=== PATIENT | male | born 1975 | race Two or more races ===

== ENCOUNTER 2019-02-22 20:45 | Inpatient (IN) | payer MEDICAID ==
[~2019-02-22] VITALS: Ht 182.9 cm; Wt 158.9 kg
[2019-02-23 13:01] VITALS: BP 128/85
== END 2019-02-23 17:16 | disposition home or self-care (01) | DRG 189 ==
LOC: ED 21:50 → EDIP 02-23 00:18 → 4NOR 02-23 01:20 → DCLOUNGE 02-23 16:52 → 4WST 02-23 17:08 → DCLOUNGE 02-23 17:11
PROVIDERS: ADMIT Internal Medicine; ATTEND Internal Medicine
DX: J96.21 Acute and chronic respiratory failure with hypoxia (principal); Z68.42 Body mass index [BMI] 45.0-49.9, adult; E66.01 Morbid (severe) obesity due to excess calories; G47.33 Obstructive sleep apnea (adult) (pediatric); G89.29 Other chronic pain; I10 Essential (primary) hypertension; Z99.81 Dependence on supplemental oxygen; Z91.19 Patient's noncompliance with other medical treatment and regimen; Z86.73 Personal history of transient ischemic attack (TIA), and cerebral infarction without residual deficits; Z90.49 Acquired absence of other specified parts of digestive tract; M54.9 Dorsalgia, unspecified
CPT/HCPCS: 36415; 36600; 71275; 80053; 82607; 82803; 83605; 83880; 84484; 85025; 93005; Q9967

== ENCOUNTER 2019-11-04 10:24 | Emergency (ER) | payer MEDICAID ==
[~2019-11-04] VITALS: Ht 185.4 cm; Wt 145.7 kg
[~2019-11-04 10:24] MED LIST: NO HOME MEDS
[2019-11-04] MEDS ORDERED: ONDANSETRON 2MG/ML, 2ML IVPush ONE (11:00)
--- NOTE | 2019-11-04 11:00 | NUR ---
LATE ENTRY FOR 1100: PT PRESENTS TO ED WITH C/O LEFT LOWER ABD PAIN RADIATING TO LEFT FLANK, WELL HEMATURIA X 3 DAYS. PT HAS HX KIDNEY STONES. PT IS A&O, RESPS EVEN AND UNLABORED, PT SPEAKING IN FULL SENTENCES WITHOUT DIFFICULTY. PT PLACED ON BP AND SPO2 MONITORS. PT SEEN BY SANDRO MEDINA, PT INFORMED OF POC.
--- NOTE | 2019-11-04 11:07 | NUR ---
piv attempted x 2, unsuccessful. task RN juan at bedside to attempt US PIV placement.
[2019-11-04] MEDS: MORPHINE SULFATE 4 MG/ML, 1ML IVPush PRN ×2 (11:28→12:23)
[2019-11-04 11:30] LABS: BASOPHILS # (AUTO) 0.06 x10^3/uL (0-0.1); BASOPHILS % (AUTO) 1 % (0-1); EOSINOPHILS # (AUTO) 0.07 x10^3/uL (0-0.4); EOSINOPHILS % (AUTO) 1 % (1-7); LYMPHOCYTES % (AUTO) 20 % (22-44); MD NO; MEAN CORPUSCULAR HEMOGLOBIN 32.6 pg (27.5-34.5); MEAN CORPUSCULAR HGB CONC 33.7 g/dL (33.2-36.2); MEAN CORPUSCULAR VOLUME 96.5 fL (81-97); MEAN PLATELET VOLUME 9.3 fL (7.4-10.4); MONOCYTES # (AUTO) 0.46 x10^3/uL (0.2-0.8); MONOCYTES % (AUTO) 8 % (2-9); NEUTROPHILS # (AUTO) 4.15 x10^3/uL (1.8-6.8); NEUTROPHILS % (AUTO) 70 % (42-75); PLATELET COUNT 170 x10^3/uL (130-400); RED BLOOD COUNT 5.19 x10^6/uL (4.38-5.82); RED CELL DISTRIBUTION WIDTH 13.1 % (9.4-14.8)
--- NOTE | 2019-11-04 11:32 | NUR ---
PT'S SPO2 86-90% ON ROOM AIR PRIOR TO MORPHINE ADMIN, PT STATES HE HAS BEEN ON HOME OXYGEN FOR LAST YEAR, STATES HE WAS ABLE TO WEAN OFF DAYTIME USE FOR THE LAST WEEK. SANDRO MEDINA NOTIFIED, SANDRO MEDINA OK'D MORPHINE ADMIN. OXYGEN APPLIED AT 2L/MIN VIA NC PRIOR TO ADMIN, PT SATTING >90% ON 2L OXYGEN. PT DENIES FEVER/SORE THORAT/COUGH. PIV PLACED BY HATTIE YADAV USING US. PT MEDICATED PER EMAR, TOLERATED WELL. BLOOD AND URINE SAMPLES COLLECTED AND SENT TO LAB. PT A&O, REPSS EVEN AND UNLABORED, NO N/V. CALL LIGHT IN REACH, BP AND SPO2 MONITORS IN PLACE.
[2019-11-04 11:39] LABS: ALBUMIN 3.7 g/dL (3.4-5.0); ANION GAP 6 mmol/L (5-15); CALCIUM 9.5 mg/dL (8.5-10.1); CHLORIDE 110 mmol/L (98-107); CREATININE 0.82 mg/dL (0.7-1.3)
[2019-11-04 11:53] LABS: MICROSCOPIC INDICATED
[2019-11-04 12:02] LABS: CULTURE INDICATED? YES
[2019-11-04] MEDS ORDERED: MORPHINE SULFATE 4 MG/ML, 1ML ONE ×2 (12:19)
[2019-11-04] MEDS ORDERED: ONDANSETRON 2MG/ML, 2ML ONE (12:19)
--- NOTE | 2019-11-04 12:27 | NUR ---
PT NOTES INITIAL DOSE MOPRHINE IMPROVED PAIN BUT LEFT LOWER ABD PAIN IS NOW 9/10. PT MEDICATED WITH SECOND DOSE MORPHINE, TOLERATED WELL. BP AND SPO2 MONITORS IN PLACE. AWAITING CT AND DISPO AT THIS TIME.
--- NOTE | 2019-11-04 13:22 | NUR ---
REPORT RECEIVED FROM HATTIE GUTIERREZ. [facility].
--- NOTE | 2019-11-04 13:24 | NUR ---
PT NOTES PAIN IMPROVED S/P MORPHINE, PT A&O, RESPS EVEN AND UNLABORED. SPO2 96% ON 2L NC. PT AWAITING CT RESULTS AND DISPO. REPORT GIVEN TO HATTIE CALLAWAY AT BEDSIDE.
[2019-11-04 14:17] VITALS: BP 140/91
[2019-11-04] MEDS ORDERED: HYDROmorphone 1 MG/ML, 1ML INJ ONE (14:20)
[2019-11-04] MEDS ORDERED: HYDROmorphone 2 MG/ML, 1ML IVPush PRN (14:30)
== END 2019-11-04 14:56 | disposition home or self-care (01) ==
LOC: ED 10:35
DX: N13.2 Hydronephrosis with renal and ureteral calculous obstruction (principal); N23 Unspecified renal colic
CPT/HCPCS: 36415; 74176; 80048; 81001; 82040; 85025; 87077; 87086; 96374; 96375; 96376; 99284; J1170; J2270; J2405